=== PATIENT | male | born 1975 | race Caucasian/White ===

== ENCOUNTER 2021-03-25 13:13 | Emergency (ER) | payer SELFPAY ==
[~2021-03-25] VITALS: Ht 175.3 cm; Wt 78.0 kg
--- NOTE | 2021-03-25 13:42 | NUR ---
LACERATION TO LEFT FOREARM,PORCELAIN FELL ON HIS FOREARM AND BROKE. RATES LEFT FOREARM PAIN 5/10. BILATERAL RADIAL PULRSES PRESENT. WILL CONTINUE TO MONITOR THE PATIENT.
[2021-03-25] MEDS ORDERED: HYDROCODONE/APAP 10/325MG TABLET PO ONE (14:30)
[2021-03-25] MEDS ORDERED: TDAP [DIPH/PERTUSSIS/TET] 0.5 ML VIAL IM ONE ×2 (14:30→14:50)
[2021-03-25] MEDS ORDERED: HYDROCODONE/APAP 10/325MG TABLET ONE (14:50)
--- NOTE | 2021-03-25 15:00 | NUR ---
SUTURING DONE BY .
[2021-03-25] MEDS ORDERED: AMOX-430 PO (15:11)
--- NOTE | 2021-03-25 15:15 | NUR ---
Patient discharged to home in stable condition. Written and verbal after care instructions given. Patient verbalizes understanding of instruction.
[2021-03-25 15:17] VITALS: BP 121/71
== END 2021-03-25 15:22 | disposition home or self-care (01) ==
LOC: ER 13:18
DX: S51.812A Laceration without foreign body of left forearm, initial encounter (principal); W19.XXXA Unspecified fall, initial encounter; Y93.89 Activity, other specified; Y92.89 Other specified places as the place of occurrence of the external cause; Y99.8 Other external cause status
CPT/HCPCS: 12004; 73090; 90471; 90715; 99283; A6403